=== PATIENT | female | born 1970 | race Caucasian/White ===

== ENCOUNTER 2016-12-29 16:48 | Emergency (ER) | payer BC ==
[~2016-12-29] VITALS: Wt 88.0 kg
[2016-12-29] MEDS ORDERED: OXYM15SP34 NASAL (18:10)
[2016-12-29] MEDS ORDERED: IBUP-1542 PO (18:10)
--- NOTE | 2016-12-29 19:31 | ERD ---
ER Documentation Chief Complaint Date/Time DATE: 12/29/16 TIME: 19:19 Chief Complaint Facial injury without knockout or loss of consciousness BRANDY Stern 46-year-old female presenting to emergency department today after a mechanical fall off a bench while holding her [id number]-dip baby close to her face. Patient reports that she leaned back thinking there was something behind her and fell, this action caused her to collide head to nose with her . Patient reports no injury to her [id number]-[id number] baby. Reports that she did not lose consciousness. Patient reports nosebleed, swelling, and pain. Reports tasting blood in the back of her throat 2, patient reports that she no longer takes any blood in the back of her throat. Patient is not actively bleeding in triage, denies nausea, vomiting, change in vision or behavior . ROS All systems reviewed and are negative except as per history of present illness. Medications Home Meds Active Scripts Ibuprofen* (Ibuprofen*) 600 Mg Tablet, 600 MG PO Q6 for PAIN, #30 TAB Prov:BRENNEN,GHASSAN 12/29/16 Oxymetazoline Hcl* (Afrin Rugby*) 0.05% - 15 Ml Rugby, 2 SPRAYS NASAL BID for 2 Days, #1 EA to each nostril Prov:BRENNEN,GHASSAN 12/29/16 Physical Exam Vitals Vital Signs Date Time Temp Pulse Resp B/P Pulse Ox O2 Delivery O2 Flow Rate FiO2 12/29/16 16:50 98.0 58 20 140/62 98 Vitals are stable, nursing notes reviewed Physical Exam Const: No acute distress Head: Atraumatic Eyes: Normal Conjunctiva, PERRLA ENT: Patient's nose is midline without obvious deformity, no raccoon eyes at this time. Nasal mucosa edematous, turbinates +3 with fresh blood noted right naris, has 3 left naris with no blood. No maxillary or frontal sinus tenderness , no blood in pharynx Neck: Full range of motion..~ No meningismus. Resp: Clear to auscultation bilaterally Cardio: Abd: Back: Ext: Neur: Awake and alert Psych: Normal Mood and Affect Procedures/MDM Leena 46-year-old female coming in today after mechanical fall backwards from a bench. Patient reports she was holding her [id number]-[id number] baby thought there was something behind her lean back and fell, this action because her to bring her baby to the front of her face hitting her nose. Patient denies any trauma to her baby, reports her nose started bleeding abruptly, denies loss of consciousness, hitting her head, nausea or vomiting or change in vision. I feel patient is stable for discharge at this time, physical exam findings show the patient is no longer actively bleeding, nasal bones and septum midline. Teaching provided with nose injury that x-ray should be obtained 48 hours after injury related to swelling. Patient instruction to be alerted for concussion symptoms, including headache, nausea, vomiting, I feel patient will benefit from symptomatic home care, ice to nose, Motrin, and Afrin are prescribed. I have discussed exam findings and treatment plan with patient including follow-up , and indications for emergent reevaluation, medication side effects. Patient was given the opportunity to assess questions. Patient verbalizes understanding and agrees with plan of care. Departure Diagnosis: Primary Impression: Epistaxis Additional Impression: Contusion of nose Encounter type: initial encounter Qualified Code: S00.33XA - Contusion of nose, initial encounter Condition: Good Patient Instructions: Epistaxis (Adult), Fracture, Nose Versus Contus (No X-Ray ) Additional Instructions: Call your primary care doctor TOMORROW for an appointment during the next 2-3 days for xrif needed . See the doctor sooner or return here if your condition worsens before your appointment time. GHASSAN HUTTON Dec 29, 2016 19:31
== END 2016-12-29 18:28 | disposition home or self-care (01) ==
LOC: E/R 16:48
DX: R04.0 Epistaxis (principal); S00.33XA Contusion of nose, initial encounter; W18.39XA Other fall on same level, initial encounter; Y92.9 Unspecified place or not applicable
CPT/HCPCS: 99283